=== PATIENT | male | born 1985 | race Hispanic/Latino ===

== ENCOUNTER 2017-11-25 12:50 | Emergency (ER) | payer MEDICAID, SELFPAY ==
--- NOTE | 2017-11-25 12:50 | DT_ITS ---
This patient was seen during an EMR downtime November 20, 2017 - November 27, 2017. This patient may have a combination of paper and electronic documentation or all paper documentation. All documentation is viewable within the e-chart portion of [facility] for each patient visit.
--- NOTE | 2017-11-25 14:55 | CT_ITS ---
STUDY: CT BRAIN WITHOUT CONTRAST REASON FOR EXAM: Male, 32 years old. Basal cell carcinoma. Hiccups for 7 days. RADIATION DOSAGE (If Supplied By Facility): CTDIvol = ( 44.99 ) mGy, DLP = ( 796.11 ) mGycm TECHNIQUE: Transaxial CT imaging of the brain was performed without administration of intravenous contrast material. Individualized dose optimization techniques were used for this CT. COMPARISON: None. FINDINGS: No evidence for shift of midline structures, mass effect or compression of ventricles noted. No acute intra-articular extra-axial hemorrhage is seen. No abnormal intracranial fluid collections identified. The basal cisterns are patent. Ventricular system appears unremarkable. Calvarium is intact. Paranasal sinuses demonstrate minimal mucosal thickening of the ethmoid vessels. The mastoid air cells are clear IMPRESSION: No evidence for acute intracranial hemorrhage, mass effect or acute large territory infarcts. Electronically Signed: Miles Krueger, at 15:26 EDT Tel , Service support , CT/Brain/Head without Contrast
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
== END 2017-11-25 15:55 | disposition home or self-care (01) ==
LOC: ED 11-26 13:33
PROVIDERS: Emergency Provider Emergency Medicine; Family Provider Family Medicine; PCP Family Medicine
DX: S09.90XA Unspecified injury of head, initial encounter (principal); S19.9XXA Unspecified injury of neck, initial encounter; F32.9 Major depressive disorder, single episode, unspecified; Z79.899 Other long term (current) drug therapy; Y04.2XXA Assault by strike against or bumped into by another person, initial encounter; Y93.89 Activity, other specified; Y92.89 Other specified places as the place of occurrence of the external cause; Y99.8 Other external cause status
CPT/HCPCS: 70450; 72125; 87491; 87591; 99282